=== PATIENT | male | born 1985 | race Caucasian/White ===

== ENCOUNTER 2020-03-24 11:47 | Emergency (ER) | payer OTHER, SELFPAY ==
[2020-03-24] VITALS (16 sets, daily range): BP systolic 98–130; BP diastolic 53–75; PULSE 77–103; RESP 11–23; TEMP 37–37.6; O2SAT 97–99
--- NOTE | 2020-03-24 11:45 | DI.CT_ITS ---
EXAM: CT CHEST/ABD/PEL W CLINICAL HISTORY: Trauma, left hip pain TECHNIQUE: COMPARISON: No exams were available for comparison FINDINGS: Note is made of a mildly comminuted mildly displaced fracture of the left scapula involving the base of the coracoid. No other fracture identified. There is no evidence of a thoracic vascular injury. The lungs are clear. No pneumothorax or pleural e ffusion. No mediastinal hematoma. No adenopathy in the chest. Tracheobronchial tree appears intact. The liver, spleen, and pancreas appear normal. Gallbladder and bile ducts are normal. Adrenals and kidneys are unremarkable. No evidence of urinary tract injury or obstruction. No abdominal or pelvic vascular injury seen. No abdominal or pelvic adenopathy. No significant abdomi nal wall hernia or hematoma. No evidence of bowel injury. IMPRESSION: Left scapular fracture at the base of the coracoid. No additional significant findings. RADIATION DOSE DELIVERED: 1,195.52mGy.cm Total DLP
--- NOTE | 2020-03-24 11:45 | DI.RAD_ITS ---
EXAM: XR SHOULDER LT COMPLETE 2+V CLINICAL HISTORY: Trauma TECHNIQUE: COMPARISON: CR XR HUMERUS LT from 03/24/2020 FINDINGS: Four views of the shoulder and three views of the humerus were obtained. No humeral fracture seen. There is a fracture of the scapula extending through the base of the coracoid and medially along the superior aspect of scapula. No glenohumeral dislocation. No additional fracture seen. IMPRESSION: RADIATION DOSE DELIVERED: Total DLP
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
[2020-03-24 12:10] LABS: Abs Immature Grans 0.13 10^3/uL (0.0-0.06); Absolute Basophil Count 0.09 10^3/uL (0.0-0.2); Absolute Eosinophil Count 0.41 10^3/uL (0.0-0.7); Absolute Lymphocyte Count 3.92 10^3/uL (1.2-3.4); Basophils % 0.6; Eosinophils % 2.7; HCT 37.4 % (40.0-50.0); HGB 13.1 g/dL (13.5-17.5); Immature Grans % 0.9; Lymphocytes % 25.8; MCH 32.3 pg (27.0-33.0); MCV 92.1 fL (80-95); MPV 9.6 fL (8.0-11.0); Monocytes % 5.7; Neutrophils % 64.3; Nucleated RBC 0 %; Platelet Count 303 10^3/uL (130-400); RBC 4.06 10^6/uL (4.36-5.78); RDW 11.3 % (11.8-14.1); RDW-SD 38.5 fL; WBC 15.19 10^3/uL (4.4-10.8)
[2020-03-24 12:11] LABS: Absolute Monocyte Count 0.87 10^3/uL (0.1-0.8); Absolute Neutrophil Count 9.77 10^3/uL (1.2-6.7)
[2020-03-24 12:30] LABS: ALT 23 U/L (16-63); AST 19 U/L (15-37); Albumin 3.9 g/dL (3.4-5.0); Alkaline Phosphatase 72 U/L (46-116); BUN 11 mg/dL (7-18); Bilirubin, Total 0.4 mg/dL (0.2-1.0); CREATININE 0.85 mg/dL (0.70-1.30); Calcium 9.2 mg/dL (8.5-10.1); Chloride 102 mmol/L (98-107); Glucose 126 mg/dL (74-106); Lipase 131 U/L (73-393); Magnesium 1.8 mg/dL (1.8-2.4); Potassium 3.4 mmol/L (3.5-5.1); Sodium 139 mmol/L (136-145); Total Protein 7.3 g/dL (6.4-8.2)
--- NOTE | 2020-03-24 12:34 | DI.CT_ITS ---
EXAM: CT HEAD CERVICAL SPINE WO COMPARISON: No exams were available for comparison FINDINGS: CT examination of the cervical spine was performed without contrast administration. There is no evide nce of acute cervical spine fracture or dislocation. Tracheolaryngeal structures appear intact. No ce rvical mass or adenopathy. Intervertebral disc spaces are well maintained. Noncontrast cranial CT was performed. Ventricular system is normal in appearance. No evidence of acut e intracranial hemorrhage, mass effect, or midline shift. No calvarial fracture. The orbital and temp oral bone structures appear intact. IMPRESSION: No evidence of acute cervical spine injury. No evidence of acute intracranial injury. RADIATION DOSE DELIVERED: 1,298.28mGy.cm Total DLP 1,298.28mGy.cm Total DLP DATA REPOSITORY: All CT scans at this facility are submitted to the National Radiology Data Registry (NRDR) Dose Index Registry (DIR) with the [employer] ([employer]). RADIATION OPTIMIZATION: All CT scans at this facility use at least one of these dose optimization te chniques: automated exposure control; mA and/or kV adjustment per patient size (includes targeted exa ms where dose is matched to clinical indication); or iterative reconstruction.
[2020-03-24] MEDS: Omnipaque 350 MG/ML 100 ML BTL IJ (12:37)
[2020-03-24] MEDS: Ondansetron 4 MG/2 ML VIAL IVP (12:54)
[2020-03-24] MEDS: HYDROmorphone 2 MG/ML VIAL 1 MG IVP (12:54)
--- NOTE | 2020-03-24 13:01 | NUR.NOTE ---
cervical collar removed per JIM CHOPRA Nursing Note:
[2020-03-24] MEDS: Normal Saline 1,000 ML 1000 ML IV (13:05)
[2020-03-24 13:17] LABS: Bilirubin Negative (Negative); Blood Negative (Negative); Clarity Clear (Clear); Glucose Negative (Negative); Ketones Negative (Negative); Leukocyte Esterase Negative (Negative); Nitrite Negative (Negative); Specific Gravity 1.015 (1.005-1.025); Urobilinogen 0.2 EU/dL (Up TO 0.2); pH 7.5 (5-8)
--- NOTE | 2020-03-24 13:34 | DI.CT_ITS ---
EXAM: CT UPPER EXTREMITY LT WO CLINICAL HISTORY: RECONS PER DR. RIOS TECHNIQUE: COMPARISON: No exams were available for comparison FINDINGS: CT reconstructions of the left shoulder region were obtained from raw data set of the chest abdomen p edmundo CT. There is mildly comminuted mildly displaced fracture of the base of the coracoid. An elongated fract ure fragment arises from the superior-most border of the scapula and extends medially from the coraco id base. Maximal displacement of the fracture fragments at the base of the coracoid is estimated at 5-8 millim eters. Note is also made of an apparent slightly comminuted impaction injury of the acromion at the acromioc lavicular joint. No additional fracture seen. No glenoid involvement by the scapular fracture. No humeral head fract ure. IMPRESSION: RADIATION DOSE DELIVERED: Total DLP
--- NOTE | 2020-03-24 13:58 | DI.RAD_ITS ---
EXAM: XR HAND LT COMPLETE CLINICAL HISTORY: Left thumb pain TECHNIQUE: COMPARISON: No exams were available for comparison FINDINGS: Three views of the hand and wrist were obtained. There is a nondisplaced fracture of the navicular w aist. No additional fracture seen. IMPRESSION: RADIATION DOSE DELIVERED: Total DLP
== END 2020-03-24 15:20 | disposition home or self-care (01) ==
LOC: ER 14:11
PROVIDERS: Emergency Provider Registered Nurse Emergency
DX: S62.022A Displaced fracture of middle third of navicular [scaphoid] bone of left wrist, initial encounter for closed fracture (principal); S42.132A Displaced fracture of coracoid process, left shoulder, initial encounter for closed fracture; M25.552 Pain in left hip; V28.4XXA Motorcycle driver injured in noncollision transport accident in traffic accident, initial encounter
CPT/HCPCS: 23570; 25622; 36415; 74177; 80053; 83690; 96361; 96374; 96375; 99285; 70450; 71260; 72125; 73030; 73060; 73130; 73200; 81003; 83735; 85025; 99284; J2405; J3490; L3650

== ENCOUNTER 2020-03-31 09:41 | Outpatient (CLI) | payer OTHER, SELFPAY ==
--- NOTE | 2020-03-31 09:38 | DI.RAD_ITS ---
EXAM: XR SHOULDER LT COMPLETE 2+V CLINICAL HISTORY: fu fracture. TECHNIQUE: 2D digital imaging was performed. COMPARISON: CR XR SHOULDER LT COMPLETE 2+V from 03/24/2020 FINDINGS: BONES: Has been no change in alignment of the left scapular fracture. There is persistent mild displ acement of the coracoid process. There has been no change in alignment of the fracture through the a cromion adjacent to the AC joint. No bony destructive lesion is seen. JOINTS: The glenohumeral joint is well maintained. SOFT TISSUE: Normal. IMPRESSION: Stable scapular fractures. DATA REPOSITORY: RADIATION DOSE DELIVERED:
--- NOTE | 2020-03-31 09:42 | DI.RAD_ITS ---
EXAM: XR WRIST LT COMP NAVICULAR CLINICAL HISTORY: left wrist injury. TECHNIQUE: 2D digital imaging was performed. COMPARISON: No exams were available for comparison FINDINGS: BONES: There has been no change in alignment of the nondisplaced fracture through the waist of the le ft scaphoid. No bony destructive lesion is seen. JOINTS: The carpal bones are normally aligned. SOFT TISSUE: Normal. IMPRESSION: Stable scaphoid fracture. DATA REPOSITORY: RADIATION DOSE DELIVERED:
== END 2020-03-31 10:01 ==
PROVIDERS: Visit Provider Student in an Organized Health Care Education/Training Program
DX: S62.002A Unspecified fracture of navicular [scaphoid] bone of left wrist, initial encounter for closed fracture (principal); S42.102A Fracture of unspecified part of scapula, left shoulder, initial encounter for closed fracture
CPT/HCPCS: 73030; 73110

== ENCOUNTER 2020-04-14 13:11 | Outpatient (CLI) | payer OTHER, SELFPAY ==
--- NOTE | 2020-04-14 11:50 | DI.RAD_ITS ---
EXAM: XR SHOULDER LT COMPLETE 2+V CLINICAL HISTORY: s/p fracture TECHNIQUE: COMPARISON: CR XR SHOULDER LT COMPLETE 2+V from 03/31/2020 FINDINGS: Two views were obtained. Previously described complex scapular fracture again noted, no change in al ignment of the acromial or coracoid components of fracture since prior radiographs March 31 allo wing for differences in projection. IMPRESSION: No change in alignment. RADIATION DOSE DELIVERED: Total DLP
--- NOTE | 2020-04-14 11:52 | DI.RAD_ITS ---
EXAM: XR WRIST LT COMP NAVICULAR CLINICAL HISTORY: s/p fracture TECHNIQUE: COMPARISON: CR XR WRIST LT COMP NAVICULAR from 03/31/2020 FINDINGS: Four views were obtained. Previously described fracture of the navicular waist again noted, no ahuja e in alignment of the fracture fragments comparison with previous radiographs of March 31. IMPRESSION: No change in alignment navicular fracture fragments. RADIATION DOSE DELIVERED: Total DLP
== END 2020-04-14 13:31 ==
PROVIDERS: Visit Provider Physician Assistant Surgical
DX: S62.002A Unspecified fracture of navicular [scaphoid] bone of left wrist, initial encounter for closed fracture (principal); S42.135A Nondisplaced fracture of coracoid process, left shoulder, initial encounter for closed fracture
CPT/HCPCS: 73030; 73110

== ENCOUNTER 2020-05-05 11:35 | Outpatient (CLI) | payer OTHER, SELFPAY ==
--- NOTE | 2020-05-05 10:15 | DI.RAD_ITS ---
EXAM: XR SHOULDER LT COMPLETE 2+V CLINICAL HISTORY: follow up TECHNIQUE: COMPARISON: CR XR SHOULDER LT COMPLETE 2+V from 04/14/2020 FINDINGS: Two views were obtained again show scapular fracture, no gross interval change in alignment the fract ure fragments comparison with examination April 14. Glenohumeral joint appears intact. IMPRESSION: RADIATION DOSE DELIVERED: Total DLP
--- NOTE | 2020-05-05 10:34 | DI.RAD_ITS ---
EXAM: XR WRIST LT COMP NAVICULAR CLINICAL HISTORY: follow up TECHNIQUE: COMPARISON: CR XR WRIST LT COMP NAVICULAR from 04/14/2020 FINDINGS: Four views were obtained. Carpal alignment appears within normal limits. Previously described fract ure of the navicular waist appears to be healing with no gross interval change in alignment of the fr acture fragments comparison with examination of April 14. IMPRESSION: RADIATION DOSE DELIVERED: Total DLP
== END 2020-05-05 11:55 ==
PROVIDERS: Referring Provider Student in an Organized Health Care Education/Training Program; Visit Provider Physician Assistant Surgical
DX: S62.025A Nondisplaced fracture of middle third of navicular [scaphoid] bone of left wrist, initial encounter for closed fracture (principal); S42.192A Fracture of other part of scapula, left shoulder, initial encounter for closed fracture
CPT/HCPCS: 73030; 73110

== ENCOUNTER 2020-06-02 14:32 | Outpatient (CLI) | payer OTHER, SELFPAY ==
--- NOTE | 2020-06-02 10:30 | DI.RAD_ITS ---
EXAM: XR WRIST LT LIMITED CLINICAL HISTORY: F/u pain. TECHNIQUE: 2D digital imaging was performed. COMPARISON: CR XR WRIST LT COMP NAVICULAR from 04/14/2020 FINDINGS: BONES: The previously seen scaphoid fracture is not well visualized on the images provided. No new f racture or dislocation is seen. No bony destructive lesion is seen. JOINTS: The carpal bones are normally aligned. SOFT TISSUE: Normal. IMPRESSION: No new fracture or dislocation. The left scaphoid fracture is not well visualized on the images prov ided. DATA REPOSITORY: RADIATION DOSE DELIVERED:
--- NOTE | 2020-06-02 10:30 | DI.RAD_ITS ---
EXAM: XR SHOULDER LT COMPLETE 2+V CLINICAL HISTORY: F/u pain. TECHNIQUE: 2D digital imaging was performed. COMPARISON: CR XR SHOULDER LT COMPLETE 2+V from 04/14/2020 CR XR SHOULDER LT COMPLETE 2+V from 05/05/2020 FINDINGS: No change in alignment of the left scapular fracture is noted. There is stable alignment of the acro mioclavicular joint and the glenohumeral joint. No new fracture or dislocation is present. The soft tissues are unremarkable. No bony destructive lesion is seen. IMPRESSION: Stable left shoulder. DATA REPOSITORY: RADIATION DOSE DELIVERED:
== END 2020-06-02 14:52 ==
PROVIDERS: Visit Provider Student in an Organized Health Care Education/Training Program
DX: S62.002A Unspecified fracture of navicular [scaphoid] bone of left wrist, initial encounter for closed fracture (principal); S42.192A Fracture of other part of scapula, left shoulder, initial encounter for closed fracture
CPT/HCPCS: 73030; 73100

== ENCOUNTER 2020-07-14 11:21 | Outpatient (CLI) | payer OTHER, SELFPAY ==
--- NOTE | 2020-07-14 11:00 | DI.RAD_ITS ---
EXAM: XR SHOULDER LT COMPLETE 2+V CLINICAL HISTORY: left coracoid fracture. TECHNIQUE: 2D digital imaging was performed. COMPARISON: CR XR SHOULDER LT COMPLETE 2+V from 06/02/2020 FINDINGS: BONES: There is been no change in alignment of the left scapular fracture compared to the prior exami nation. No new fracture or dislocation is identified. No bony destructive lesion is seen. JOINTS: The acromioclavicular and glenohumeral joints are well maintained. SOFT TISSUE: Normal. IMPRESSION: Stable left scapular fracture. DATA REPOSITORY: RADIATION DOSE DELIVERED:
--- NOTE | 2020-07-14 11:00 | DI.RAD_ITS ---
EXAM: XR WRIST LT COMPLETE CLINICAL HISTORY: left scaphoid fracture. TECHNIQUE: 2D digital imaging was performed. COMPARISON: CR XR WRIST LT LIMITED from 06/02/2020 FINDINGS: No evidence of fracture nor carpal dislocation. Scaphoid appears unremarkable. A subtle line at the waist has more the appearance of a nutrient artery canal than an actual fracture line. No evidence of avascular necrosis. IMPRESSION: No fracture evident. DATA REPOSITORY: RADIATION DOSE DELIVERED:
== END 2020-07-14 11:41 ==
PROVIDERS: Visit Provider Student in an Organized Health Care Education/Training Program
DX: S42.132A Displaced fracture of coracoid process, left shoulder, initial encounter for closed fracture (principal); S62.002D Unspecified fracture of navicular [scaphoid] bone of left wrist, subsequent encounter for fracture with routine healing
CPT/HCPCS: 73030; 73110

== ENCOUNTER 2020-09-01 12:06 | Outpatient (CLI) | payer OTHER, SELFPAY ==
--- NOTE | 2020-09-01 11:00 | DI.RAD_ITS ---
EXAM: XR WRIST LT COMP NAVICULAR INDICATION: F/u. COMPARISON: CR XR WRIST LT COMP NAVICULAR from 05/05/2020 TECHNIQUE: 2D digital imaging was performed. FINDINGS: No acute fracture or dislocation. The bones are osteopenic likely from decreased use. The soft tiss ues are unremarkable. IMPRESSION: DATA REPOSITORY: RADIATION DOSE DELIVERED:
--- NOTE | 2020-09-01 11:00 | DI.RAD_ITS ---
EXAM: XR SHOULDER LT COMPLETE 2+V CLINICAL HISTORY: F/u. TECHNIQUE: 2D digital imaging was performed. COMPARISON: CR XR SHOULDER LT COMPLETE 2+V from 04/14/2020 CR XR SHOULDER LT COMPLETE 2+V from 05/05/2020 CR XR SHOULDER LT COMPLETE 2+V from 07/14/2020 CR XR SHOULDER LT COMPLETE 2+V from 07/14/2020 FINDINGS: BONES: There has been no change in alignment of the scapular compared to the prior examination. No n ew fracture or dislocation is identified. No bony destructive lesion is seen. JOINTS: No dislocation present. SOFT TISSUE: Normal. IMPRESSION: Stable left scapula. DATA REPOSITORY: RADIATION DOSE DELIVERED:
== END 2020-09-01 12:07 | disposition home or self-care (01) ==
LOC: DIORS 12:06
PROVIDERS: Visit Provider Student in an Organized Health Care Education/Training Program
DX: M25.512 Pain in left shoulder (principal); S62.025A Nondisplaced fracture of middle third of navicular [scaphoid] bone of left wrist, initial encounter for closed fracture
CPT/HCPCS: 73030; 73110

== ENCOUNTER 2020-10-27 11:54 | Outpatient (CLI) | payer SELFPAY ==
--- NOTE | 2020-10-27 11:00 | DI.RAD_ITS ---
EXAM: XR SHOULDER LT COMPLETE 2+V CLINICAL HISTORY: f/u. TECHNIQUE: 2D digital imaging was performed. COMPARISON: CR XR SHOULDER LT COMPLETE 2+V from 09/01/2020 FINDINGS: There is no evidence of fracture nor glenohumeral joint effusion. No calcifications in the subacromi al space. There is, however, slight offset of the AC joint. This may be related to prior surgery. On the outlet view I note 2 parallel channels in the humeral head which may be related to prior rotat or cuff surgery. IMPRESSION: DATA REPOSITORY: RADIATION DOSE DELIVERED:
== END 2020-10-27 11:55 | disposition home or self-care (01) ==
LOC: DIORS 11:55
PROVIDERS: Visit Provider Student in an Organized Health Care Education/Training Program
DX: S43.102D Unspecified dislocation of left acromioclavicular joint, subsequent encounter (principal)
CPT/HCPCS: 73030